=== PATIENT | female | born 1980 | race Caucasian/White ===

== ENCOUNTER → 2023-06-18 08:55 | Outpatient (REF) | payer OTHER, SELFPAY | LOC: WDC 08:55 | PROVIDERS: ATTENDING PHYSICIAN Obstetrics & Gynecology Gynecology | DX: N60.01 Solitary cyst of right breast (principal) | CPT/HCPCS: 19000; 76642; 76942 ==

== ENCOUNTER → 2024-01-08 16:57 | Outpatient (REF) | payer OTHER, SELFPAY | LOC: WDC 16:57 | PROVIDERS: ATTENDING PHYSICIAN Obstetrics & Gynecology Gynecology; FAMILY PHYSICIAN Nurse Practitioner Adult Health | DX: Z12.31 Encounter for screening mammogram for malignant neoplasm of breast (principal) | CPT/HCPCS: 77063; 77067 ==

== ENCOUNTER 2025-02-04 06:22 | Day surgery (SDC) | payer OTHER, SELFPAY ==
[2025-02-04 11:25] LABS: Glucose - Point of Care 76 mg/dl (70-99)
== END 2025-02-04 13:08 | disposition home or self-care (01) ==
LOC: GI 06:22
PROVIDERS: ATTENDING PHYSICIAN Internal Medicine Gastroenterology; FAMILY PHYSICIAN Nurse Practitioner Adult Health
DX: Z12.11 Encounter for screening for malignant neoplasm of colon (principal); D12.3 Benign neoplasm of transverse colon; D12.4 Benign neoplasm of descending colon; D12.5 Benign neoplasm of sigmoid colon; K62.1 Rectal polyp; K64.9 Unspecified hemorrhoids
CPT/HCPCS: 45385; 45380; 45381; 82962; 88305

== ENCOUNTER 2025-03-08 06:14 | Day surgery (SDC) | payer OTHER, SELFPAY ==
[2025-03-08 11:19] VITALS: BMI 30.3
[2025-03-08 11:20] VITALS: BMI 30.3
[2025-03-08 11:21] VITALS: BP 109/69
[2025-03-08 11:39] LABS: Glucose - Point of Care 81 mg/dl (70-99)
[2025-03-08 13:32] LABS: Glucose - Point of Care 79 mg/dl (70-99)
[2025-03-08 15:13] VITALS: BP 88/52
[2025-03-08 15:15] VITALS: BP 90/55
[2025-03-08 15:30] VITALS: BP 92/59
== END 2025-03-08 15:55 | disposition home or self-care (01) ==
LOC: GI 06:14
PROVIDERS: ATTENDING PHYSICIAN Internal Medicine Gastroenterology
DX: D12.3 Benign neoplasm of transverse colon (principal); K64.0 First degree hemorrhoids
CPT/HCPCS: 45390; 82962; 88305